=== PATIENT | male | born 1955 | race Caucasian/White ===

== ENCOUNTER 2016-11-28 13:24 | Inpatient (IN) | payer OTHER ==
[~2016-11-28] VITALS: Ht 171.4 cm; Wt 80.3 kg
--- NOTE | ~2016-11-28 | CON ---
PATIENT'S NAME: YOVANA LANDRY [facility] AGE: 61 Y [address] ROOM: [address] [address] [place] [facility] [place] DATE: 11/28/2016 Consultation DISCHARGE DATE: FAMILY PHYSICIAN: Maury Membreno MD ATTENDING PHYSICIAN: JOSE MARTIN FREDERICK REFERRING PHYSICIAN: YANIRA JIM MD REASON FOR CONSULT: Abnormal CAT scan of the abdomen. HISTORY OF PRESENT ILLNESS: This is a very pleasant, 61-year-old male, who presented with abdominal pain, with previous history of kidney stones and was thought to be relating to similar issues, which he has had in the past. However, a CT scan of the abdomen revealed thickening of the cecal wall as well as terminal ilium and question of malignancy and therefore, we were asked to see him in regard to performing colonoscopy. The patient complains of having pain in the right lower quadrant as well as some black stools. He has not had any previous colonoscopic evaluation. His blood work is ordered and is pending. He has had previous history of non-Hodgkin's lymphoma and has undergone treatment twice for this in the form of adjuvant chemoradiation therapy. PAST MEDICAL HISTORY: 1. Non-Hodgkin lymphoma. 2. Kidney stones. PAST SURGICAL HISTORY: 1. Splenectomy. 2. Spinal surgery. 3. Multiple cysto with stent placement. 4. Right inguinal hernia repair. MEDICATIONS ON ADMISSION: None. Presently obtaining pain medication in the form of Tylenol, Dilaudid, and ketorolac p.r.n. ALLERGIES: NONE KNOWN. 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 Denies smoking or alcohol use. FAMILY HISTORY: None for GI cancer. Father had lung cancer. Mother with bladder cancer. PATIENT'S NAME: YOVANA LANDRY [facility] AGE: 61 Y [address] ROOM: [address] [address] [place]: [facility] [place]: 11/28/2016 Consultation DISCHARGE DATE: FAMILY PHYSICIAN: Maury Membreno MD ATTENDING PHYSICIAN: JOSE MARTIN FREDERICK REVIEW OF SYSTEMS: GENERAL: He has been able to work with no recent history of loss of appetite, loss of weight, fever, chills. SKIN: Denies any rashes, discolorations. HEAD, EYES, AND EARS: Denies headaches, dizziness, seizure, or visual changes. RESPIRATORY: Denies cough, shortness of breath, hemoptysis. CARDIOVASCULAR: Denies chest pain, orthopnea, dyspnea on exertion. GASTROINTESTINAL: As noted with recent findings of abnormal CAT scan and question of malignancy. GENITOURINARY: He has had problem with kidney stones and has undergone multiple cystos. ENDOCRINE: Negative for diabetes. Denies polyuria or polydipsia. MUSCULOSKELETAL: Denies joint pain, swelling, or arthritis. SKIN/LYMPHATICS: Denies lymph nodes or bruising. NEUROLOGIC: Denies weakness, seizure, memory changes, or depression. PHYSICAL EXAMINATION: GENERAL: Well-developed, well-nourished man in mild distress in view of right- sided abdominal pains, which are intermittent in nature. He is otherwise awake, alert, and appropriate. VITAL SIGNS: As noted in the nursing sheet are stable. HEENT: Atraumatic and normocephalic. Pupils are round and reactive. Nonicteric sclerae. NECK: Supple. No JVD. No palpable nodes or thyromegaly. CHEST: Clear to auscultation. HEART: S1, S2 normal. ABDOMEN: Soft and mildly distended with moderate right lower quadrant tenderness, no guarding. RECTAL: Not done. EXTREMITIES: No joint swelling. Normal range of motion. No edema. NEUROLOGIC: Awake, alert, and appropriate without any focal deficits. LABORATORY DATA: Reviewed revealing white cell count of 14,000, hemoglobin 12.3, hematocrit 37.1. Chemistry panel is normal except for serum albumin of 3.1. PT/INR 1.1. CT scan of the abdomen revealing circumferential wall thickening involving the cecum and terminal ilium suggestive of malignancy. There is evidence of mildly prominent regional lymph nodes, tiny nonobstructive right intrarenal stone is noted. There is no evidence of metastatic liver disease and there is evidence of splenectomy. ASSESSMENT AND PLAN: This is a 61-year-old male with history of kidney stones presenting with similar problem and underwent CT scan of the abdomen with surprise findings of PATIENT'S NAME: YOVANA LANDRY [facility] AGE: 61 Y [address] ROOM: [place] [address] [place]: [facility] [place] DATE: 11/28/2016 Consultation DISCHARGE DATE: FAMILY PHYSICIAN: Maury Membreno MD ATTENDING PHYSICIAN: JOSE MARTIN FREDERICK suspicious for malignancy. The patient also has had history of gastrointestinal bleed with no previous colonoscopy. His hematocrit is well preserved. He does have some abdominal discomfort and bloating possibly secondary to this lesion. The patient needs colonoscopy for further diagnostic purposes and will be scheduled in an urgent fashion. I have explained to him the procedure of colonoscopy, including the possible risks, complications thereof and he wishes to proceed. Further recommendations post this evaluation. Thank you for this consult. MAXIMINOM MD MIRTHA JIM/rosalia /[id number] d: 11/29/16 0852 t: 11/30/16 0730, CONSULTATION REPORT
--- NOTE | ~2016-11-28 | CON ---
PATIENT'S NAME: STEVEN LANDRY [facility] AGE: 61 Y [address] ROOM: [address] [place] [id number] [place] [facility] [place] DATE: 11/28/2016 Consultation DISCHARGE DATE: FAMILY PHYSICIAN: Maury Membreno MD ATTENDING PHYSICIAN: JOSE MARTIN FREDERICK DATE OF CONSULTATION: 11/30/2016 REFERRING PHYSICIAN: YANIRA JIM MD REASON FOR CONSULTATION: The patient is a 61-year-old male who was admitted with severe right lower quadrant pain. He said that he has had some change in his stools recently, and he has some abdominal bloating. He did have a CT scan performed of his abdomen and pelvis when he was in the emergency room on 11/28 which showed circumferential wall thickening of the cecum and the distal terminal ilium with surrounding mesenteric stranding. There was some mild prominence in the regional lymph nodes. He also had one punctate intrarenal stone on the right kidney in the lower pole. Because of the patient's CT scan, he had a colonoscopy prep and a colonoscopy yesterday. Apparently, the report showed some thickening in the cecum, and multiple biopsies were taken. Since he has had his colonoscopy prep, his abdominal pain is significantly better. He has really not had anything for pain since he has been here. PAST MEDICAL HISTORY: He was diagnosed with Hodgkin disease, stage IVB, in 1983. He had a splenectomy at that time. He underwent chemotherapy. He did have a relapse in 1985 of Hodgkin disease. At that time, he underwent chemotherapy and had radiation therapy to his chest. 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 He underwent chemotherapy x4 cycles and had radiation therapy to that area. SOCIAL HISTORY: He is a nonsmoker and a nondrinker. He has 3 adopted children aged 20 to 24. FAMILY HISTORY: Paternal grandmother of colon cancer when she was very young, likely in her 30s. Father of lung cancer at age 78, but he smoked significantly. Maternal grandfather had colon cancer and at age 93. Mother had bladder cancer when she was really young, when Steven was approximately 10 years old, and she is living currently. A maternal uncle had bladder cancer, he was a heavy smoker and has had several different bladder resections. REVIEW OF SYSTEMS: PATIENT'S NAME: LANDRY, STEVEN M [facility] AGE: 61 Y [address] ROOM: [address] [address] [place] [facility] [place] DATE: 11/28/2016 Consultation DISCHARGE DATE: FAMILY PHYSICIAN: Maury Membreno MD ATTENDING PHYSICIAN: JOSE MARTIN FREDERICK Besides his GI complaints of abdominal bloating and change in the color of his stools, he has otherwise been doing well. PHYSICAL EXAMINATION: VITAL SIGNS: Temperature is 97.3, pulse 77, respirations 16, blood pressure is 123/68, and saturation is 93% on room air. GENERAL: The patient is a very pleasant, alert, and oriented male who is in no distress. HEENT: No scleral icterus present. Extraocular muscles intact. Mouth is clear of lesions. NECK: Supple without adenopathy or thyromegaly. Trachea is in the midline. There are no masses or nodules present. HEART: Regular. LUNGS: Clear to auscultation anteriorly. ABDOMEN: Bowel sounds are present. He is fairly tender in his right lower quadrant on mild palpation. There are no obvious masses that are palpable. EXTREMITIES: He has no peripheral edema. SKIN: There is no skin rash, petechia, or ecchymosis that are noted. IMPRESSION: 1. Cecal mass, pathology pending. 2. Remote history of Hodgkin disease, likely cured. 3. Follicular non-Hodgkin lymphoma. Apparently, stage I, status post chemo and radiation. RECOMMENDATIONS: 1. We will have Dr. Correa follow up with the biopsy report. If this is adenocarcinoma, then he likely would need resection, but consider a PET scan prior to resection to look at the stage of his disease. 2. If this is a lymphoma, there is no role for Surgery, and we will have him get set up for followup to consider treatment options as an outpatient. 3. I think it would be reasonable to send the patient home, maybe have some hydrocodone on hand in case if he needs it, and I can follow up outpatient as necessary. HEIDI BEDOYA MD CML/modl /[id number] PATIENT'S NAME: STEVEN LANDRY [facility] AGE: 61 Y [address] ROOM: [address] [address] [place] [facility] [place] DATE: 11/28/2016 Consultation DISCHARGE DATE: FAMILY PHYSICIAN: aMury Membreno MD ATTENDING PHYSICIAN: JOSE MARTIN FREDERICK CC: Maury Membreno MD d: 11/30/16 1457 t: 12/09/16 1451, CONSULTATION REPORT
--- NOTE | ~2016-11-28 | HP ---
PATIENT'S NAME: YOVANA LANDRY [facility] AGE: 61 Y [address] ROOM: [place] [id number] [place]: [facility] [place] DATE: 11/28/2016 History & Physical DISCHARGE DATE: FAMILY PHYSICIAN: Maury Membreno MD ATTENDING PHYSICIAN: JOSE MARTIN FREDERICK DATE OF SERVICE: CHIEF COMPLAINT: Abdominal pain, cecum mass. HISTORY OF PRESENT ILLNESS: This is a 61-year-old male with a history of lymphoma twice in the and last time in 2010, in remission since, presents here for evaluation of left lower quadrant abdominal pain, and a CT scan of the abdomen showing a possible mass surrounding the cecum and terminal ilium. The patient reports the abdominal pain is localized to the left lower quadrant, described as achy and started yesterday evening and has been progressively getting worse since. The pain is nonradiating, dull in nature. The pain is exacerbated by movement and relieved with rest. The patient denies any nausea or vomiting, did have a bowel movement yesterday. The patient never had a colonoscopy done before. PAST MEDICAL HISTORY: Follicular lymphoma and Hodgkin lymphoma. SOCIAL HISTORY: No history of smoking, alcohol use, or drug use. FAMILY HISTORY: The patient notes a history of multiple cancers including colon cancer in his first-degree relatives. REVIEW OF SYSTEMS: All systems have been reviewed and were negative except as described in the HPI. PHYSICAL EXAMINATION: VITAL SIGNS: Blood pressure 145/70, pulse 70, respiratory rate 12, and temperature 97.8. GENERAL: The patient is awake, alert, and oriented x3, in mild distress. HEENT: Moist mucous membranes. No scleral icterus or conjunctival pallor noted. SKIN: Without rash or lesions. CHEST: Clear to auscultation bilaterally. HEART: S1, S2. Regular rate and rhythm. PATIENT'S NAME: YOVANA LANDRY [facility] AGE: 61 Y [address] ROOM: [address] [address] [place]: [facility] [place] DATE: 11/28/2016 History & Physical DISCHARGE DATE: FAMILY PHYSICIAN: Maury Membreno MD ATTENDING PHYSICIAN: JOSE MARTIN FREDERICK ABDOMEN: Mildly distended and severely tender at the right lower quadrant. Positive bowel sounds. NEURO: Grossly nonfocal. MUSCULOSKELETAL: No joint effusion, swelling, redness, or muscular pain noted. ASSESSMENT AND PLAN: 1. Cecal mass, concerning for malignancy. The patient does have an extensive history of malignancy including lymphoma 3 times as well as has a strong family history of colon cancer as well. The patient has never had a colonoscopy before. I am involving General surgery and GI and I have spoken to them and the plan is to go along with a colonoscopy first, then evaluate to see resection of an area needed after that. 2. Abdominal pain. This is related to the cecal mass. We will continue supportive care and pain management. The patient does not exhibit signs and symptoms of a bowel obstruction at this point. 3. History of recurrent lymphoma. 4. Deep venous thrombosis prophylaxis. We will use heparin 5000 units t.i.d. MD AFUA IZAGUIRRE/rosalia /[id number] D: 230 T: 521 HISTORY & PHYSICAL
--- NOTE | ~2016-11-28 | CON ---
PATIENT'S NAME: STEVEN LANDRY [facility] AGE: 61 Y [address] ROOM: [place] [address] [place]ATION: [facility] [place]MIT DATE: 11/28/2016 Consultation DISCHARGE DATE: FAMILY PHYSICIAN: Maury Membreno MD ATTENDING PHYSICIAN: JOSE MARTIN FREDERICK REFERRING PHYSICIAN: YANIRA JMI MD CHIEF COMPLAINT: Abdominal pain. HISTORY OF PRESENT ILLNESS: The patient is a 61-year-old male, who said he developed onset of abdominal pain today in the right lower quadrant. Denies having pain prior to this. Said his bowels have been working well, though had noticed today they got much lidia. He has a history of lymphoma, had been treated for Hodgkin as well as I believe B-cell. His last treatment was in 2011. He had his first episode in the . At that time, he said he had his spleen removed, also underwent treatment for this. He has a history of kidney stones. He was seen and evaluated today because of his right lower quadrant pain. He was sent to Urology. Urology ordered a CT scan. CT ended up revealing a cecal and terminal ileum thickening, likely representing mass. He has been having regular bowel movements. His appetite has been decreased, although he denies losing weight. He said yesterday he did look up on the internet signs and symptoms of colon cancer, although denies having symptoms prior to today, something prompted him to do this. He does have intermittent episodes of hot and cold intolerances, but says this has been that way ever since having chemotherapy. CURRENT MEDICATIONS: None. ALLERGIES: NONE. PREVIOUS SURGERIES: Splenectomy, port placement, right inguinal hernia repair. CURRENT ILLNESSES: 1. History of lymphoma x3. 2. History of meningitis. REVIEW OF SYSTEMS: He denies headache or vision changes. He does have hot and cold intolerances. He denies chest pain or shortness of breath. He has had melenic stools. No hematuria or dysuria. No diabetes. No hyper or hypothyroidism. Further review of systems is negative. PATIENT'S NAME: STEVEN LANDRY [facility] AGE: 61 Y [address] ROOM: [place] [address] LOCATION: [facility] [place] ADMIT DATE: 11/28/2016 Consultation DISCHARGE DATE: FAMILY PHYSICIAN: Maury Membreno MD ATTENDING PHYSICIAN: JOSE MARTIN FREDERICK PHYSICAL EXAMINATION: GENERAL: A pleasant, cooperative 61-year-old male, in no acute distress. HEENT: Head is normocephalic, atraumatic. Eyes are anicteric. NECK: Without lymphadenopathy. HEART: Regular rate and rhythm. LUNGS: Clear to auscultation bilaterally. ABDOMEN: Reveals mild distention. Bowel sounds are present. Point tenderness in the right lower quadrant is moderate to severe. The rest of the abdomen is benign. EXTREMITIES: Warm. No edema. NEUROLOGIC: Gross motor is intact. ASSESSMENT: Cecal and terminal ileal mass. PLAN: I discussed the findings with Steven. We need to get further workup. I would recommend a colonoscopy at this time. This does not have the appearance of infection, although lab is still pending. We will check a CEA. It appears though Gastroenterology has been consulted, who likely will perform a colonoscopy. If his pain is under control with oral pain medications, and it does not worsen and no other signs of infection, likely he could be discharged with further outpatient workup. His CT was noncontrasted, and we may need better visualization whether this be with PET. I discussed with him the possibility of a lymphoma as well as infection. Because of this, we just need further information. MD AGUSTO ROWEO/melbal /[id number] d: 11/28/16 2338 t: 12/11/16 1122, CONSULTATION REPORT
--- NOTE | ~2016-11-28 | DS ---
PATIENT'S NAME: YOVANA LANDRY [facility] AGE: 61 Y [address] ROOM: [address] [place] [id number] [place] [facility] [place]: 11/28/2016 Discharge Summary DISCHARGE DATE: 11/30/2016 FAMILY PHYSICIAN: Maury Membreno MD ATTENDING PHYSICIAN: Jad Fuller FINAL DIAGNOSES: 1. Cecal mass, likely lymphoma, awaiting biopsy results. 2. History of lymphoma x2 in the past. 3. Leukocytosis, resolved. 4. Right nephrolithiasis. CONSULTATIONS: 1. Surgery, Dr. Correa. 2. GI, Dr. Mckeon. 3. Hematology/Oncology, Dr. King. PROCEDURES: Colonoscopy with biopsy of cecal mass by Dr. Mckeon. REASON FOR ADMISSION: This is a 61-year-old male with a history of lymphoma x2 in the past. The patient presented with abdominal pain. He was evaluated and was found to have a cecal mass. He was then admitted to [facility]. Please see Dr. Fuller's admission H and P for further details. DIAGNOSTIC STUDIES: Serial CBCs were done. White count on admission was 14.1, at the time of discharge was stable at 11.2, hemoglobin, hematocrit, and platelet levels were within normal range. BMP was normal. Liver function tests were normal. PT/INR normal. UA showed no leukocytes and no blood. Procalcitonin level 0.07. CEA pending. The patient had a CT abdomen and pelvis without contrast done on admission that showed circumferential wall thickening involving the cecum and also the terminal ileum, likely malignancy, infection was thought to be less likely, mildly prominent regional lymph nodes also suspicious were noted. A colonoscopy was then recommended to further evaluate a tiny nonobstructing right intrarenal stone was noted as well. Chest x-ray was done for sepsis evaluation and elevated white count and showed no focal infiltrate, pleural effusion, or pneumothorax. Right-sided Port-A- Cath device was stable. Blood cultures were negative. HOSPITAL COURSE: This is a 61-year-old male with a history of lymphoma, status post XRT in the past. The patient has had lymphoma twice in the past. He presented with abdominal pain and was evaluated with an abdominal CT. The patient was found to have cecal wall thickening likely malignancy. Surgery Dr. Correa was consulted. Dr. Correa recommended a colonoscopy with biopsy. GI was consulted. The patient underwent a colonoscopy with biopsy with . PATIENT'S NAME: YOVANA LANDRY [facility] AGE: 61 Y [address] ROOM: [address] [address] [place] [facility] [place]: 11/28/2016 Discharge Summary DISCHARGE DATE: 11/30/2016 FAMILY PHYSICIAN: Maury Membreno MD ATTENDING PHYSICIAN: Jad Fuller. Biopsy result is pending at this point of time. The patient likely has lymphoma and was found to have a cecal mass on colonoscopy. The patient also had leukocytosis on admission. He reported a history of fever with chills at home for a few days prior. A sepsis evaluation was done. White count was normal. The patient did not have any fever. He was not placed on any antibiotics. Blood cultures were negative. The patient was also noted to have incidental right nephrolithiasis. He does not report any pain and his symptoms are likely not secondary to nephrolithiasis. The patient was placed on p.o. pain pills at the time of discharge. Hematology/Oncology, Dr. King was consulted for his cecal mass. The patient will follow up with surgery and also Hematology/Oncology outpatient. It was determined that the patient was stable to be discharged home and follow up outpatient with his oncologist, surgery, and primary care physician. The patient continued to do well. He was tolerating p.o. His pain was very well-controlled. He was ambulating in the hallway without any problems. He was then discharged with appropriate followup. DISCHARGE INSTRUCTIONS: The patient discharged on regular diet. Activities as tolerated. Follow up with Dr. Correa in [address] Correa to follow up with the biopsy results. Follow up with Dr. Membreno, his primary care physician, in 3-4 days' time. PCP to check a CBC and a BMP. PCP also to follow up with biopsy results. Follow up with Hematology/Oncology, Dr. King, once biopsy results are back in 1 to 2 weeks' time. DISCHARGE MEDICATIONS: 1. Multivitamin 1 tab p.o. daily. 2. Stovall 5/325 mg 1 tab p.o. q.4-6 h. p.r.n. pain. This patient was managed by Hospitalist, Surgery, GI, and Hematology/Oncology teams during this admission. OMID RUFFIN MD MT/rosalia /[id number] PATIENT'S NAME: YOVANA LANDRY [facility] AGE: 61 Y [address] ROOM: [place] [address] [place] [facility] [place]: 11/28/2016 Discharge Summary DISCHARGE DATE: 11/30/2016 FAMILY PHYSICIAN: Maury Membreno MD ATTENDING PHYSICIAN: Jad Fuller CC: MD Holley Camagro MD Robert C Messbarger, MD d: 12/01/16 0146 t: 12/15/16 2124, DISCHARGE SUMMARY
[2016-11-28] MEDS ORDERED: THERAGRAN-M1 TAB PO (14:38)
[2016-11-28] MEDS ORDERED: ADVIL200 MG PO (14:38)
[2016-11-28 22:08] LABS: BASOPHIL # 0.1 K/uL (0.0-0.2); BASOPHIL % 0.4 %; EOSINOPHIL % 0.3 %; HEMATOCRIT 37.1 % (37.0-53.0); HEMOGLOBIN 12.3 g/dL (11.0-16.0); IMMATURE GRANULOCYTE % 0.3 %; LYMPHOCYTE # 2.8 K/uL (0.8-4.0); LYMPHOCYTE % 20.1 %; MCH 30.8 pg (27.0-34.0); MCHC 33.2 gm/dL (32.0-36.5); MONOCYTE # 1.2 K/uL (0.0-1.0); MONOCYTE % 8.2 %; MPV 9.4 fl (9.4-12.4); NEUTROPHIL % 70.7 %; NRBC % 0 /100WBC (0-0.00); PLATELET COUNT 316 K/uL (150-450); RBC 3.99 M/uL (3.50-5.50); RDW-CV 13.1 % (11.9-14.6); WBC 14.1 K/uL (4.0-11.0)
[2016-11-28 22:16] LABS: INR - (THERAPEUTIC) 1.01 (0.92-1.07); PROTIME 10.6 SECONDS (9.8-11.4)
[2016-11-28 22:21] LABS: ALBUMIN 3.1 gm/dL (3.5-5.0); ANION GAP 11.5 (10.0-19.0); BLOOD UREA NITROGEN 14 mg/dL (6-24); CALCIUM 8.1 mg/dL (8.5-10.5); CHLORIDE 107 mMol/L (96-110); CO2 26 mMol/L (22-32); ESTIMATED GFR (MDRD EQUATION) > 60; MAGNESIUM 2.6 mg/dL (1.8-2.6); PHOSPHORUS 2.6 mg/dL (2.5-4.9); POTASSIUM 3.5 mMol/L (3.7-5.1); SODIUM 141 mMol/L (135-145)
[2016-11-29 17:40] LABS: ALK PHOS 76 IU/L (33-138); ALT 20 IU/L (12-78); ANION GAP 11.6 (10.0-19.0); AST 15 IU/L (10-40); BLOOD UREA NITROGEN 17 mg/dL (6-24); CALCIUM 7.8 mg/dL (8.5-10.5); CHLORIDE 106 mMol/L (96-110); CO2 29 mMol/L (22-32); CREATININE 0.9 mg/dL (0.6-1.3); ESTIMATED GFR (MDRD EQUATION) > 60; POTASSIUM 3.6 mMol/L (3.7-5.1); SODIUM 143 mMol/L (135-145); TOTAL BILIRUBIN 0.7 mg/dL (0.0-1.5); TOTAL PROTEIN 6.3 g/dL (6.0-8.4)
[2016-11-29 17:44] LABS: BASOPHIL # 0.1 K/uL (0.0-0.2); BASOPHIL % 0.5 %; EOSINOPHIL # 0.1 K/uL (0.0-0.5); EOSINOPHIL % 0.8 %; HEMATOCRIT 35.3 % (37.0-53.0); HEMOGLOBIN 11.7 g/dL (11.0-16.0); IMMATURE GRANULOCYTE # 0.1 K/uL (0.0-0.3); IMMATURE GRANULOCYTE % 0.4 %; LYMPHOCYTE # 2.3 K/uL (0.8-4.0); LYMPHOCYTE % 20.7 %; MCH 30.6 pg (27.0-34.0); MCHC 33.1 gm/dL (32.0-36.5); MCV 92.4 fl (83.0-98.0); MONOCYTE # 1.1 K/uL (0.0-1.0); MONOCYTE % 9.4 %; MPV 10.4 fl (9.4-12.4); NEUTROPHIL # (ANC) 7.7 K/uL (1.4-9.0); NEUTROPHIL % 68.2 %; NRBC % 0 /100WBC (0-0.00); RBC 3.82 M/uL (3.50-5.50); RDW-CV 13.1 % (11.9-14.6); WBC 11.2 K/uL (4.0-11.0)
[2016-11-29 18:10] LABS: PLATELET COUNT 248 K/uL (150-450)
[2016-11-29 20:41] LABS: BILIRUBIN URINE NEGATIVE (NEGATIVE); BLOOD URINE NEGATIVE /UL (NEGATIVE); COLOR URINE YELLOW (YELLOW); GLUCOSE URINE NEGATIVE (NEGATIVE); KETONE URINE 50 mg/dL (NEGATIVE); LEUKOCYTES URINE NEGATIVE /UL (NEGATIVE); NITRITE URINE NEGATIVE (NEGATIVE); PROTEIN URINE NEGATIVE (NEGATIVE); TURBIDITY URINE CLEAR (CLEAR); UROBILINOGEN URINE NORMAL (NORMAL)
[2016-11-30] MEDS ORDERED: NORCO 5-325 TA1 EACH PO (12:33)
== END 2016-11-30 16:09 | disposition disaster alternative care site (69) | DRG 842 ==
LOC: GMSU 13:24
PROVIDERS: Family Medicine; Internal Medicine; ADMIT Family Medicine
PROC: 0DBH8ZX Excision of Cecum, Via Natural or Artificial Opening Endoscopic, Diagnostic (ICD-10-PCS; principal; 2016-11-29)
PROC: 0DBC8ZX Excision of Ileocecal Valve, Via Natural or Artificial Opening Endoscopic, Diagnostic (ICD-10-PCS; 2016-11-29)
DX: C83.33 Diffuse large B-cell lymphoma, intra-abdominal lymph nodes (principal); N20.0 Calculus of kidney; Z85.71 Personal history of Hodgkin lymphoma; Z80.0 Family history of malignant neoplasm of digestive organs; D72.829 Elevated white blood cell count, unspecified; Z92.21 Personal history of antineoplastic chemotherapy; Z92.3 Personal history of irradiation
CPT/HCPCS: J1642; J1644; J1885; J2405; J2765; J7120

== ENCOUNTER → 2016-11-28 | Outpatient (CLI) | payer OTHER ==
[~2016-11-28] MED LIST: ADVIL200 MG PO; AMBIEN10 MG PO; BACTRIM DS1 TAB PO; FLOMAX0.4 MG PO; LIDOCAINE-PRILO30 GM TOP; MILK OF MA400 MG/5 M PO; MIRALAX17 GM PO; MYLANTA (MAG-AL30 ML PO; NORCO 5-325 TA1 EACH PO; PEPCID AC10 MG PO; PRILOSEC20 MG PO; SENOKOT8.6 MG PO; THERAGRAN-M1 TAB PO; XARELTO20 MG PO; ZOFRAN ODT8 MG PO; ZOVIRAX400 MG PO; ZYLOPRIM300 MG PO
== END | disposition disaster alternative care site (69) ==
LOC: GRAD 10:00
DX: N20.0 Calculus of kidney (principal); R10.9 Unspecified abdominal pain; K63.89 Other specified diseases of intestine

== ENCOUNTER → 2016-12-09 | Outpatient (CLI) | payer OTHER | END | disposition disaster alternative care site (69) | LOC: GKIC 11:19 | DX: C18.9 Malignant neoplasm of colon, unspecified (principal); K63.89 Other specified diseases of intestine | CPT/HCPCS: A9552 ==

== ENCOUNTER → 2016-12-25 | Outpatient (CLI) | payer OTHER ==
--- NOTE | ~2016-12-25 | ECHO ---
Transthoracic Echocardiography Report (TTE) Demographics Patient Name YOVANA LANDRY Date of Study 12/25/2016 Patient Number [id number] Visit Number [id number] Date of 1955 Room Number Gender Male Number Age 61 year(s) Referring [employer] Community Relations Coordinator Rafa Rhodes RVT, Physician RD Physician Interpreting [employer] Support Specialist Physician MD Supervising Ordering Bulmaro Hendricks MD, MD/P Physician Nurse Stress Mental Health Technician Conclusions Contractility Score Summary Normal Left Ventricular contractility was noted. Summary Limited echo for ejection fraction. The estimated left ventricular ejection fraction is 55-60% with mild LVH,normal EF and WM. Small clinically insignificant pericardial effusion. Procedure Type of Study TTE procedure:Echo Limited w/o Contrast. Procedure Date Date: 12/25/2016 Start: 02:53 PM Study Location: Echo Lab Technical Quality: Good visualization Indications:High Risk Medication Use. Appropriate Use Criteria: 8 Patient Status: Routine Rhythm: NSR HR: 89 bpm BP: 136/70 mmHg M-Mode/2D Measurements LV Diastolic Dimension: 4.84 cm LV Systolic Dimension: 2.95 cm LV Septum Diastolic: 1.19 cm LV PW Diastolic: 1.1 cm AO Root Dimension: 2.3 cm LA Dimension: 3.3 cm RV Diastolic Dimension: 2.93 cm EF Estimated: 55 % LVOT: 2.4 cm Findings Left Ventricle Mild LVH with normal internal dimension,EF and WM. Right Ventricle Normal right ventricle structure and function. Left Atrium Normal left atrial size. Right Atrium Normal right atrial size. Mitral Valve Normal mitral valve structure and function. Aortic Valve Not well seen. Tricuspid Valve Not well seen. Pulmonic Valve Not well seen. Pericardial Effusion Small clinically insignificant pericardial effusion. Miscellaneous Visualized portions of the aortic root and ascending aorta appear normal in size. Pleural Effusion No evidence of pleural effusion. Contractility Score LV regional wall motion:(0-Non visualized 1-Normal 2-Hypokinesis 3-Akinesis 4-Dyskinesis 5-Aneurysm) Signature dtt: Muna Ayoub dtd: 12/25/16 1453 Physician Self Edit
== END | disposition disaster alternative care site (69) ==
LOC: GCAR 14:00
DX: Z51.81 Encounter for therapeutic drug level monitoring (principal); C85.11 Unspecified B-cell lymphoma, lymph nodes of head, face, and neck; C82.01 Follicular lymphoma grade I, lymph nodes of head, face, and neck; C82.61 Cutaneous follicle center lymphoma, lymph nodes of head, face, and neck; I31.3 Pericardial effusion (noninflammatory)

== ENCOUNTER 2016-12-30 09:00 | Inpatient (IN) | payer OTHER ==
[~2016-12-30] VITALS: Ht 172.7 cm; Wt 80.9 kg
--- NOTE | ~2016-12-30 | DS ---
PATIENT'S NAME: STEVEN LANDRY [facility] AGE: 61 Y [address] 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 HISTORY OF PRESENT ILLNESS AND PAST MEDICAL HISTORY: Well summarized in Dr. Chamberlain's admission history and physical and will not be repeated here. LABORATORY AND X-RAY: None obtained while the patient was in the hospital. HOSPITAL COURSE: Mr. Landry was admitted, no laboratory or x-rays were obtained. The patient's hospitalization was uneventful. He experienced some relief of his gastrointestinal symptoms provoked by the lymphoma, presumably due to response. He complained of insomnia. 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 We visited with him about his choices at the end of his stay. We asked if he wondered if he should rule out the possibility of intubation under any circumstances. We provided him a Living Will, but cautioned him against automatically ruling out intubation in his situation. He is a healthy 61-year-old man with a potentially curable disease and conceivably might have to weigh the pros and cons of intubation for an infectious pulmonary complication in his situation. Fortunately, this is unlikely, but it could happen. When the patient's infusion, then intravenous bolus cyclophosphamide had been administered, Mr. Landry was discharged. DISCHARGE DIAGNOSIS: Stage IIE diffuse large B-cell lymphoma (germinal center type) of the cecal portion of the colon. DISCHARGE MEDICATIONS: 1. Acyclovir 400 mg p.o. daily. 2. Allopurinol 300 mg p.o. daily. 3. Multivitamins daily. 4. Trimethoprim sulfamethoxazole 800/160 one p.o. on Tuesdays and Fridays. 5. Ondansetron 8 mg p.o. every 8 hours p.r.n. nausea or vomiting. DISCHARGE DISPOSITION: 1. The patient will return to [facility] on 01/05/2017, to receive 6 mg subcutaneous pegfilgrastim. PATIENT'S NAME: STEVEN LANDRY [facility] AGE: 61 Y [address] ROOM: [address] [place] [id number] LOCATION: [facility] [place] DATE: 12/30/2016 Discharge Summary DISCHARGE DATE: 01/03/2017 FAMILY PHYSICIAN: Maury Membreno MD ATTENDING PHYSICIAN: Cody Chamberlain 2. The patient will see Dr. Holley King on 01/19/2017, for evaluation prior to hospitalization for 2nd planned cycle of R-EPOCH. CHRISTIN CALDERA MD GKB/modl /[id number] CC: MD Maury Edmond MD d: 01/04/17 0247 t: 01/04/17 1326, DISCHARGE SUMMARY
[~2016-12-30 09:00] MED LIST changes: -AMBIEN10 MG PO; -BACTRIM DS1 TAB PO; -FLOMAX0.4 MG PO; -LIDOCAINE-PRILO30 GM TOP; -MILK OF MA400 MG/5 M PO; -MIRALAX17 GM PO; -MYLANTA (MAG-AL30 ML PO; -PEPCID AC10 MG PO; -PRILOSEC20 MG PO; -SENOKOT8.6 MG PO; -XARELTO20 MG PO; -ZOFRAN ODT8 MG PO; -ZOVIRAX400 MG PO; -ZYLOPRIM300 MG PO
[2017-01-03] MEDS ORDERED: BACTRIM DS1 TAB PO (18:57)
[2017-01-03] MEDS ORDERED: ZOVIRAX400 MG PO (18:59)
[2017-01-03] MEDS ORDERED: ZYLOPRIM300 MG PO (18:59)
== END 2017-01-03 22:50 | disposition disaster alternative care site (69) | DRG 847 ==
LOC: GMSU 09:00
PROVIDERS: ADMIT Internal Medicine Hematology & Oncology
PROC: 3E0430M Introduction of Antineoplastic, Monoclonal Antibody, into Central Vein, Percutaneous Approach (ICD-10-PCS; principal; 2016-12-30)
DX: Z51.11 Encounter for antineoplastic chemotherapy (principal); C83.39 Diffuse large B-cell lymphoma, extranodal and solid organ sites
CPT/HCPCS: J0171; J1100; J1200; J1642; J1720; J2175; J2405; J2469; J7030; J7040; J7050; J7512; J9000; J9070; J9181; J9310; J9370

== ENCOUNTER 2017-01-19 09:00 | Inpatient (IN) | payer OTHER ==
[~2017-01-19] VITALS: Ht 172.7 cm; Wt 75.9 kg
--- NOTE | ~2017-01-19 | DS ---
PATIENT'S NAME: STEVEN LANDRY [facility] AGE: 61 Y [address] ROOM: [address] [address] [place] [facility] [place]: 01/19/2017 Discharge Summary DISCHARGE DATE: 01/23/2017 FAMILY PHYSICIAN: Maury Membreno MD ATTENDING PHYSICIAN: Cody Chamberlain INDICATION: Steven Lanrdy is a 61-year-old man who was admitted to the hospital for his 2nd cycle of R-EPOCH. The history of the present illness and past medical history is well reviewed in the admission note attached to the chart and will not be repeated here. LABORATORY AND X-RAY: Urinalysis unremarkable. Uric acid was 4.1 mg/dL on 01/22/2017. ProBNP was 222 pg/mL on 01/22/2017 with the upper limits of normal being 124 pg/mL. A CT scan of the abdomen and pelvis revealed moderate prostatomegaly. The thickening in the cecum from the patient's primary tumor had improved. 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 HOSPITAL COURSE: Mr. Landry was admitted. The aforementioned laboratory and x-rays were obtained. A bladder scan performed upon his admission revealed 180 mL of urine in the bladder and a postvoid residual revealed 30 mL. The patient's terribly annoying urinary hesitancy, urgency, and incomplete voiding completely resolved. This episode is a mystery. The patient credited the physical examination of the prostate with this benign outcome. Since the patient did have tiny kidney stones, this theory is not completely off the wall, but his improvement is a mystery. We will not change our management. The patient tolerated his chemotherapy infusion well. We will look into the potential for administering chemotherapy infusions over 24 hours for 4 days in a row as an outpatient. The patient's vincristine paresthesias did not increase while he was in the hospital. When the infusion was complete and the bolus of parenteral cyclophosphamide was administered, the patient was discharged. DISCHARGE DIAGNOSES: 1. Stage IIE, diffuse large B-cell lymphoma of the cecum, responding to therapy with R-EPOCH. 2. Benign prostatic hypertrophy. 3. Anxiety. 4. Grade 2 vincristine paresthesias. 5. Grade 2 constipation from vincristine. DISCHARGE MEDICINES: 1. Acyclovir 400 mg p.o. daily. 2. Famotidine 20 mg p.o. daily. 3. Multivitamins 1 p.o. q.24 hours. 4. Polyethylene glycol 17 g p.o. daily. PATIENT'S NAME: STEVEN LANDRY [facility] AGE: 61 Y [address] ROOM: [address] [address] [place]: [facility] [place] DATE: 01/19/2017 Discharge Summary DISCHARGE DATE: 01/23/2017 FAMILY PHYSICIAN: Maury Membreno MD ATTENDING PHYSICIAN: oCdy Chamberlain 5. Trimethoprim-sulfamethoxazole 1 p.o. b.i.d. on Thursday and Thursday. 6. Mylanta 30 mL p.o. every 4 hours p.r.n. 7. Milk of magnesia 30 mL p.o. every day p.r.n. 8. Zolpidem tartrate 5 mg p.o. q.h.s. 9. Ondansetron 8 mg p.o. every 12 hours p.r.n. nausea and vomiting. 10. EMLA cream, apply to the port as needed. The patient's allopurinol and tamsulosin were discontinued. DISCHARGE DISPOSITION: 1. The patient will have a surveillance echocardiogram prior to his next dose of infusional doxorubicin 1 week prior to his return into the office. 2. The patient will report to [facility] on 01/26/2017 for pegfilgrastim 6 mg subcutaneous. 3. The patient will see Dr. Chamberlain on 02/10/2017, with a CBC and CMS in anticipation of starting his third and final cycle of R-EPOCH. The patient expressed a preference for receiving his rituximab infusion at the [facility], so this will need to be considered, as well as the potential for administering 24-hour infusions of the doxorubicin, vincristine, and CLINICAL EDUCATION MANAGER-16. MD LUISA MORENOB/modl /[id number] CC: MD Maury Edmond MD d: 01/24/17 0317 t: 01/27/17 0922, DISCHARGE SUMMARY
[~2017-01-19 09:00] MED LIST changes: +BACTRIM DS1 TAB PO; +ZOVIRAX400 MG PO; +ZYLOPRIM300 MG PO
[2017-01-19 12:00] LABS: BILIRUBIN URINE NEGATIVE (NEGATIVE); BLOOD URINE NEGATIVE /UL (NEGATIVE); COLOR URINE YELLOW (YELLOW); GLUCOSE URINE NEGATIVE (NEGATIVE); KETONE URINE NEGATIVE (NEGATIVE); LEUKOCYTES URINE NEGATIVE /UL (NEGATIVE); NITRITE URINE NEGATIVE (NEGATIVE); PROTEIN URINE NEGATIVE (NEGATIVE); TURBIDITY URINE CLEAR (CLEAR); UROBILINOGEN URINE NORMAL (NORMAL)
--- NOTE | 2017-01-19 17:12 | NUR ---
Patient is alert and oriented x3. VSS and on RA. Port to the right chest, SL. Currently down at CT scan of the abdomen and pelvis. Plan is to start chemo when he arrives back on the floor. Denies pain at this time. Holding the allopurinol. Having urgency with urination, aware. Up ad mercy. Regular diet. Hazardous drug precautions. 24 hour continuous infiusion of chemotherapy to begin. Did have the rituxan infusion over at the cancer center before coming over to the [facility]. in the room. Cooperative with cares.
[2017-01-19] MEDS ORDERED: PEPCID AC10 MG PO (18:07)
[2017-01-19] MEDS ORDERED: FLOMAX0.4 MG PO (18:07)
[2017-01-19] MEDS ORDERED: ZOFRAN ODT8 MG PO (18:08)
--- NOTE | 2017-01-20 02:29 | NUR ---
Significant Event: PT AO. VSS ON RA, AFEBRILE. PORT TO R CHEST, GOOD BLOOD RETURN. DAILY WT, STRICT I/O. DECREASED APPETITE, DENIES PAIN AND NAUSEA. CHEMOTHERAPY ( DOXORUBICIN, VINCRISTINE, ETOPOSIDE) CONTINUE TO RUN. BAG WAS HUNG AT 1730. UP AD KEHINDE IN ROOM WITH . Follow up: 24HR BAG CHANGE, CONTINUE TO MONITOR
--- NOTE | 2017-01-20 16:42 | NUR ---
Significant event: Patient is alert and oriented. VSS. on room air. No fever. No complaints of pain or nausea. Decreased appetite. Does drink well. CHemo continues to run. Up ad mercy. Uses urinal at bedside. No BM, did refuse miralax this morning. Has port to right chest. Strict I/O and daily wt. Cooperative with cares.
--- NOTE | 2017-01-21 03:57 | NUR ---
Significant Event: PT AO. VSS ON RA, AFEBRILE. PORT TO R CHEST, CHEMOTHERAPY INFUSION CONTINUES TO RUN. PT DENIES PAIN, DENIES NAUSEA. C/O CONSTIPATION. PRN MILK OF MAG GAVE WITH NO RESULTS YET. AMBULATES IN HALLS AND ROOM INDEPENDENTLY. AT BEDSIDE. TOLERATING REGULAR DIET, DOES C/O DECREASED APPETITE. Follow up: CHEMOTHERAPY BAG CHANGE, CONTINUE TO MONITOR
[2017-01-21] MEDS ORDERED: LIDOCAINE-PRILO30 GM TOP (07:28)
--- NOTE | 2017-01-21 16:45 | NUR ---
Significant event: Patient is alert and oriented x3. VSS. On room air. Port to right chest, with continuous chemo running. Uses urinal at beside, is on strict I&O. Had BM this morning. Dc'd daily weight and vital signs changed to once a shift. ambulates with stand by assist. Cooperative cares.
--- NOTE | 2017-01-22 07:23 | NUR ---
Significant Event: A/O X3 AND COOPERATIVE WITH CARES. DENIES PAIN. VSS AND AFEBRILE. VITALS ONLY ONCE A SHIFT. PORT TO R) CHEST WITH GOOD BLOOD RETURN. REMAINS ON CONTINUOUS CHEMO, NEW BAG HUNG. NO COMPLICATIONS NOTED FROM CHEMO AT THIS TIME. UP AD KEHINDE. AT BEDSIDE. REFUSED LAB DRAW THIS AM. CALLED DR MARIE AND CHANGED TO NURSE DRAW FOR TONIGHT WHEN CHANGING CHEMO BAGS DUE TO PATIENT' SEVERE NEEDLE PHOBIA. DID GET AMBIEN AT HS. SLEPT WELL THROUGH NIGHT. Follow up: CONTINUOUS CHEMO INFUSION. NURSE DRAW TONIGHT WHEN CHANGING CHEMO BAGS.
--- NOTE | 2017-01-22 15:51 | NUR ---
Patient is alert and oriented, VSS, Q shift vital sign and assessment. No daily weights and no blood draws by lab due to needle phobia. Independent in room. Continuous 24 hour chemo, will be changed around 1900. Prior to new bag being hung, labs need to be drawn. Tonight will start day 4 of chemo, will need Cytoxan tomorrow night and probably go home after that infusion.
[2017-01-22 19:00] LABS: HEMATOCRIT 30.9 % (37.0-53.0); HEMOGLOBIN 10.1 g/dL (11.0-16.0); IMMATURE GRANULOCYTE # 0.1 K/uL (0.0-0.3); IMMATURE GRANULOCYTE % 0.8 %; LYMPHOCYTE # 0.6 K/uL (0.8-4.0); LYMPHOCYTE % 5.9 %; MCH 28.1 pg (27.0-34.0); MCHC 32.7 gm/dL (32.0-36.5); MCV 86.1 fl (83.0-98.0); MONOCYTE # 0.4 K/uL (0.0-1.0); MONOCYTE % 4.1 %; MPV 8.9 fl (9.4-12.4); NEUTROPHIL # (ANC) 8.9 K/uL (1.4-9.0); NEUTROPHIL % 89.2 %; NRBC % 0.8 /100WBC (0-0.00); PLATELET COUNT 513 K/uL (150-450); RBC 3.59 M/uL (3.50-5.50); RDW-CV 14.7 % (11.9-14.6); WBC 9.9 K/uL (4.0-11.0)
[2017-01-22 19:20] LABS: ALBUMIN 2.6 gm/dL (3.5-5.0); ALK PHOS 98 IU/L (33-138); ALT 36 IU/L (12-78); ANION GAP 11.5 (10.0-19.0); AST 23 IU/L (10-40); BLOOD UREA NITROGEN 18 mg/dL (6-24); CALCIUM 8.1 mg/dL (8.5-10.5); CHLORIDE 108 mMol/L (96-110); CO2 25 mMol/L (22-32); CREATININE 0.8 mg/dL (0.6-1.3); ESTIMATED GFR (MDRD EQUATION) > 60; POTASSIUM 3.5 mMol/L (3.7-5.1); SODIUM 141 mMol/L (135-145)
[2017-01-22 19:24] LABS: TOTAL BILIRUBIN 0.3 mg/dL (0.0-1.5)
--- NOTE | 2017-01-23 05:00 | NUR ---
Significant Event: STANDBY ASSIST WITH TRANSFERS. CHEMOTHERAPY RUNNING. VITAL SIGNS AND ASSESSMENTS ONCE EVERY SHIFT. FAMILY AT BEDSIDE. VOIDING WITHOUT DIFFICULTY. R) CHEST PORT. NUMBNESS AND TINGLING TO FINGERS. Follow up:
[2017-01-23] MEDS ORDERED: MIRALAX17 GM PO (18:36)
[2017-01-23] MEDS ORDERED: MYLANTA (MAG-AL30 ML PO (18:37)
[2017-01-23] MEDS ORDERED: AMBIEN10 MG PO (18:43)
[2017-01-23] MEDS ORDERED: MILK OF MA400 MG/5 M PO (18:43)
--- NOTE | 2017-01-23 19:28 | NUR ---
AAOx3. Cooperative with cares. Up ad mercy in room. Chemotherapy infusing through Right chest port. Chemo will be completed prior to 1999 and patient d/c'd to home. Deaccess port prior to d/c. VSS, afebrile, on RA. No PRN meds given. Charge nurse to manage chemo. Patient educated on chemo precautions, followup appointments, and new medications. Bottled water and Gatorade in galley for patient. Have d/c papers signed.
--- NOTE | 2017-02-09 11:32 | NUR ---
Post hospitalization follow up call make to patient. Patient reports he is just beginning to feel better, however; will have chemotherapy tomorrow and then feels worse. Misses having Dr. Duran as his assigned oncologist. Reports hospital stay went well. States he wishes nursing staff assignments would be more consistent as he felt he had a different nurse every day.
== END 2017-01-23 20:38 | disposition disaster alternative care site (69) | DRG 848 ==
LOC: GMSU 09:00
PROVIDERS: Internal Medicine Hematology & Oncology; ADMIT Internal Medicine Hematology & Oncology
DX: Z51.11 Encounter for antineoplastic chemotherapy (principal); F41.9 Anxiety disorder, unspecified; R10.13 Epigastric pain; K59.09 Other constipation; R20.8 Other disturbances of skin sensation; N40.1 Benign prostatic hyperplasia with lower urinary tract symptoms; R39.11 Hesitancy of micturition; R39.15 Urgency of urination
CPT/HCPCS: J0171; J1100; J1200; J1720; J2469; J7030; J7040; J7050; J7512; J9000; J9070; J9181; J9310; J9370; Q9967

== ENCOUNTER → 2017-01-30 | Outpatient (CLI) | payer OTHER ==
[~2017-01-30] MED LIST changes: +AMBIEN10 MG PO; +FLOMAX0.4 MG PO; +LIDOCAINE-PRILO30 GM TOP; +MILK OF MA400 MG/5 M PO; +MIRALAX17 GM PO; +MYLANTA (MAG-AL30 ML PO; +PEPCID AC10 MG PO; +PRILOSEC20 MG PO; +SENOKOT8.6 MG PO; +XARELTO20 MG PO; +ZOFRAN ODT8 MG PO
--- NOTE | ~2017-01-30 | ENPV ---
Vascular Lower Extremities DVT Study Procedure Demographics Patient Name YOVANA LANDRY Date of Study 01/30/2017 Patient Number [id number] Gender Male Date of 1955 Age 61 Visit Number [id number] Height Accession Number [id number] Weight Room Number BSA BMI Referring Bulmaro Hendricks MD Interpreting Brandon Cruz MD Physician Temi Nath Physician MD Bulmaro Hendricks Physician Ordering Physician Bulmaro Hendricks Set Making Machine Operator Glass Forming Engineer Perry Worrell RVT Conclusions Summary Evidence of DVT in right posterior tibial and peroneal veins. No evidence of DVT proximal to calf veins. Procedure Type of Study: Veins:Lower Extremities DVT Study, Lower Extremity Left. Additional Indications:calf pain Appropriate Use Criteria:9 Patient Status:Routine. Study Location:Vascular Lab. Technical Quality:Adequate visualization. Velocities are measured in cm/s ; Diameters are measured in cm Right Lower Extremities DVT Study Measurements Right 2D and Doppler Measurements + + + + +------+------+ + !Location !Visualized!Compressibility!Thrombosis!Signal!Reflux!Reflux ! ! ! ! ! ! ! !(sec) ! + + + + +------+------+ + !Common !Yes !Yes !None ! ! ! ! !Femoral ! ! ! ! ! ! ! + + + + +------+------+ + Left Lower Extremities DVT Study Measurements Left 2D and Doppler Measurements + + + + +------+------+ + !Location !Visualized!Compressibility!Thrombosis!Signal!Reflux!Reflux ! ! ! ! ! ! ! !(sec) ! + + + + +------+------+ + !GSV Thigh !Yes !Yes !None ! ! ! ! + + + + +------+------+ + !Common !Yes !Yes !None ! ! ! ! !Femoral ! ! ! ! ! ! ! + + + + +------+------+ + !Prox !Yes !Yes !None ! ! ! ! !Femoral ! ! ! ! ! ! ! + + + + +------+------+ + !Mid Femoral!Yes !Yes !None ! ! ! ! + + + + +------+------+ + !Dist !Yes !Yes !None ! ! ! ! !Femoral ! ! ! ! ! ! ! + + + + +------+------+ + !Popliteal !Yes !Yes !None ! ! ! ! + + + + +------+------+ + !PTV !Yes !Partial !Sub-acute ! ! ! ! + + + + +------+------+ + !Peroneal !Yes !Partial !Sub-acute ! ! ! ! + + + + +------+------+ + Signature dtt: LENO SUÁREZ: 01/30/17 1107 Physician Self Edit
== END | disposition disaster alternative care site (69) ==
LOC: GCAR 10:48
DX: M79.662 Pain in left lower leg (principal); C85.13 Unspecified B-cell lymphoma, intra-abdominal lymph nodes; Z79.899 Other long term (current) drug therapy

== ENCOUNTER → 2017-02-02 | Outpatient (CLI) | payer OTHER ==
--- NOTE | ~2017-02-02 | ECHO ---
Transthoracic Echocardiography Report (TTE) Demographics Patient Name YOVANA LANDRY Date of Study 02/02/2017 Patient Number [id number] Visit Number [id number] Date of 1955 Room Number Gender Male Number Age 61 year(s) Referring Bulmaro Hendricks Government Affairs Director Lovely Morgan RDCS, Physician RVT Physician Interpreting Wei Graham Frame Aligner Physician Verónica VIDAL Supervising Ordering Bulmaro Hendricks MD, MD/MLP Physician Nurse Stress Scooter Mechanic Conclusions Contractility Score Summary Normal Left Ventricular contractility was noted. Summary The estimated left ventricular ejection fraction is 55-60%. The left atrium is mildly dilated by LA volume index measurement. Mild concentric left ventricular hypertrophy. Small posterior pericardial effusion. Procedure Type of Study TTE procedure:Echo Limited w/o Contrast. Procedure Date Date: 02/02/2017 Start: 10:54 AM Study Location: Echo Lab Technical Quality: Adequate visualization Indications:High Risk Medication Use. Appropriate Use Criteria: 9 Patient Status: Routine HR: 90 bpm BP: 122/62 mmHg M-Mode/2D Measurements LV Diastolic Dimension: 4.45 cm LV Systolic Dimension: 2.28 cm LV Septum Diastolic: 1.03 cm LV PW Diastolic: 1.05 cm LA Dimension: 3.4 cm RV Diastolic Dimension: 3.54 cm LA volume: 58 ml Findings Left Ventricle Mild concentric left ventricular hypertrophy. Right Ventricle Normal right ventricle structure and function. Left Atrium The left atrium is mildly dilated by LA volume index measurement. Right Atrium Normal right atrial size. Pericardial Effusion Small posterior pericardial effusion. Pleural Effusion No evidence of pleural effusion. Contractility Score LV regional wall motion:(0-Non visualized 1-Normal 2-Hypokinesis 3-Akinesis 4-Dyskinesis 5-Aneurysm) Signature dtt: Bri Carvajal dtd: 02/02/17 1054 Physician Self Edit
== END | disposition disaster alternative care site (69) ==
LOC: GCAR 10:47
DX: Z51.81 Encounter for therapeutic drug level monitoring (principal); C85.13 Unspecified B-cell lymphoma, intra-abdominal lymph nodes; I51.7 Cardiomegaly; I31.3 Pericardial effusion (noninflammatory); Z79.899 Other long term (current) drug therapy

== ENCOUNTER 2017-02-10 10:00 | Inpatient (IN) | payer OTHER ==
[~2017-02-10] VITALS: Ht 172.7 cm; Wt 72.5 kg
--- NOTE | ~2017-02-10 | DS ---
PATIENT'S NAME: YOVANA LANDRY [facility] AGE: 61 Y [address] ROOM: [address] [place], [place] [address] LOCATION: [facility] [place] ADMIT DATE: 02/10/2017 Discharge Summary DISCHARGE DATE: 02/14/2017 FAMILY PHYSICIAN: Physician, Unknown ATTENDING PHYSICIAN: Chris Duran REASON FOR HOSPITALIZATION: As outlined in the H and P and will be repeated here. HOSPITAL COURSE: The patient was admitted for his third cycle of R-EPOCH chemotherapy to treat his diffuse large cell non-Hodgkin's lymphoma. The first couple days after starting his chemotherapy, he did have some mild nausea and some heartburn; however, the nausea improved with some antiemetics and his Prilosec was changed in the evening and that seemed to control most of his symptoms. Otherwise, his hospital stay was completely uneventful. DISCHARGE MEDICATIONS: He will resume all of his prior home medications which are: 1. Xarelto 15 mg daily. 2. Acyclovir 400 mg b.i.d. 3. Bactrim DS 2 days a week. 4. Flomax. 5. Prilosec daily. 6. Senokot. 7. Zofran p.r.n. 8. MiraLax. The patient will be discharged in good condition. He is scheduled to get Neulasta at [facility] on February 17. He has a followup appointment with Dr. Chamberlain on March 06 and he will schedule an appointment to go to [facility] and to have further evaluation done as well. HEIDI BEDOYA MD CML/modl /[id number] d: 02/14/171833 t: 03/05/171648, DISCHARGE SUMMARY
[~2017-02-10 10:00] MED LIST changes: -PRILOSEC20 MG PO; -SENOKOT8.6 MG PO; -XARELTO20 MG PO
[2017-02-10] MEDS ORDERED: PRILOSEC20 MG PO (16:05)
[2017-02-10] MEDS ORDERED: SENOKOT8.6 MG PO (16:06)
--- NOTE | 2017-02-10 16:06 | NUR ---
Pt is 61 y/o male admit for chemotherapy tx for . Pt alert and oriented x3. Resides at home with his . Pt has had 4 different kinds of cancer since he was 27 y/o. Currently he's being tx'd for diffuse Lg B cell lymphoma. Hx neuropathy fingers,gerd,heartburn,nocturia,kidney stone,skin CA,depression,anxiety,Hodgkins lymphoma,follicular lymphoma,and skin Ca. Allergy to ambien-caused confusion. Red and yellow bracelets on.
[2017-02-10] MEDS ORDERED: XARELTO20 MG PO (16:50)
--- NOTE | 2017-02-10 18:30 | NUR ---
Significant Event: Patient admitted to floor at 1500 for chemotherapy treatments that run through Thursday. Patient will be on chemotherapy precautions throughout his hospital stay. Chemotherapy medication bag hung today at 1621 and should infuse for 24 hours and then a new bag will be hung. Denies pain. Very little appetite but did get patient some pedialyte to try and ordered up 2 bottles of water and 2 gatorade for patient. at bedside and able to help patient as needed. Patient did ambulate in the [place] with his just prior to chemo being started. Implanted port to right chest intact and patent with good blood return and currently has patient's chemo infusing through it. Follow up: Continue to monitor. Encourage oral intake to avoid dehydration.
--- NOTE | 2017-02-11 04:42 | NUR ---
Significant Event: Patient alert and oriented X4. Up ad mercy. at bedside and helps with cares. 24 hours chemo started around 1630 to R) chest port. Vitals stable. Pt refused 2nd set of vitals, 2nd assessment, daily weight and all lab draws. States he does not want to be bothered and just wants to sleep. brought supper for him, had bites. Pedialyte at bedside, and extra bottled water and gatorade in fridge for him. Mylanta given around 0230 for heart burn. History of several cancers. DVT in leg, pt on xarelto. Follow up:
--- NOTE | 2017-02-11 16:03 | NUR ---
Significant Event: Patient alert and oriented. Up to the bathroom with assist from and ambulated in the hallway this afternoon. Patient c/o nausea this morning and received Mylanta 30 ml at 0839 and Zofran ODT 8 mg at 0916 with partial relief. Patient states not having an appetite. Refused breakfast and had bites of lunch. Portacath to his R) upper chest patent with good blood return. Continues with the continuous infusion of chemotherap of Adriamycin/Vincristing/Etoposide. Follow up: Chemotherapy precautions.
--- NOTE | 2017-02-12 02:50 | NUR ---
Significant Event: PT AO. VSS ON RA, AFEBRILE. REFUSED SECOND SET VITALS. UP AD KEHINDE IN ROOM WITH . CHEMOTHERAPY RUNNING TO R CHEST PORT, BAG CHANGED AROUND 1700. TOLERATING SMALL AMOUNTS REGULAR DIET. DENIES PAIN AND NAUSEA. Follow up: CONTINUE TO MONITOR, CHEMO PRE MEDS
--- NOTE | 2017-02-12 18:39 | NUR ---
AAOx3. Cooperative with cares. Up independently in room. Port to R)chest w/GBR and chemotherapy running 96hrs. Bag changed @1630. Voids per urinal. [facility]. Strict I/O.
--- NOTE | 2017-02-13 04:16 | NUR ---
Significant Event: PT AO. VSS ON RA, AFEBRILE. REFUSED SECOND ASSESSMENT, JUST WANTS TO SLEEP. AMBULATED IN VIDAL WITH . UP AD KEHINDE IN ROOM. STRICT I/O. PORT TO R CHEST, CHEMOTHERAPY INFUSING WITH NO COMPLICATIONS. DENIES NAUSEA, DENIES PAIN. NO BM REPORTED THIS SHIFT. Follow up: CONTINUE TO MONITOR, CHEMOTHERAPY BAG CHANGE AROUND 1600
--- NOTE | 2017-02-13 17:03 | NUR ---
AAOx3. Cooperative with cares. Up independently and with family. Vital signs stable, on RA. Chemotherapy infusing in R)chest w/GBR. Voids per urinal. No BM; has PRN meds for this if wanted.
--- NOTE | 2017-02-14 05:36 | NUR ---
Significant Event: A/O X3 AND COOPERATIVE WITH CARES. CONTINUES ON 24HR CHEMO AND TOLERATING WELL. UP INDEPENDENTLY. PORT TO R) CHEST HAS GOOD BLOOD RETURN. VOIDS PER URINAL, STRICT I&O. SLEPT WELL THROUGH NIGHT. AT BEDSIDE. Follow up:
--- NOTE | 2017-02-14 18:03 | NUR ---
PATIENT ALERT AND ORIENTED X3. VSS. UP AD KEHINDE IN ROOM. CONTINUOUS CHEMO INFUSED WELL WITHOUT COMPLICATIONS. PAC TO RIGHT CHEST HAS GOOD BLOOD RETURN, WILL RECIEVE CYTOXAN THEN DC HOME TONIGHT. NO NEEDS NOTED. PATIENT PLEASANT AND COOPERATIVE WITH CARES.
--- NOTE | 2017-02-14 20:18 | NUR ---
PT VSS UPON DISCHARGE. PORT DE-ACCESSED BY BEAUTY CULTURE TEACHER. PT SHOWERED JUST PRIOR TO DEPARTURE. AMBULATED OFF UNIT AT 1948 WITH SPOUSE BY SIDE. LEFT VIA POV TO HOME.
--- NOTE | 2017-03-02 13:30 | NUR ---
Post hospitalization follow up call made to patient. Patient reports he is tired however feels he is doing well after his chemotherapy. No questions concerning his medication or follow ups. [place] his hospitalization went well.
== END 2017-02-14 19:48 | disposition disaster alternative care site (69) | DRG 847 ==
LOC: GMSU 10:37
PROVIDERS: ADMIT Internal Medicine Hematology & Oncology
DX: Z51.11 Encounter for antineoplastic chemotherapy (principal); C83.30 Diffuse large B-cell lymphoma, unspecified site
CPT/HCPCS: J1100; J2469; J7030; J7040; J7050; J7512; J9000; J9070; J9181; J9310; J9370

== ENCOUNTER → 2017-03-05 | Outpatient (CLI) | payer OTHER ==
[~2017-03-05] MED LIST changes: +PRILOSEC20 MG PO; +SENOKOT8.6 MG PO; +XARELTO20 MG PO
== END ==
LOC: GKIC 11:21
DX: Z08 Encounter for follow-up examination after completed treatment for malignant neoplasm (principal)
CPT/HCPCS: A9552

== ENCOUNTER 2017-03-11 08:00 | Inpatient (IN) | payer OTHER ==
[~2017-03-11] VITALS: Ht 172.7 cm; Wt 74.8 kg
--- NOTE | ~2017-03-11 | DS ---
PATIENT'S NAME: STEVEN LANDRY [facility] AGE: 61 Y [address] ROOM: [address] [address] LOCATION: [facility] [place]MIT DATE: 03/11/2017 Discharge Summary DISCHARGE DATE: 03/15/2017 FAMILY PHYSICIAN: Maury Membreno MD ATTENDING PHYSICIAN: Cody Marie REASON FOR HOSPITALIZATION: To receive R-EPOCH chemotherapy. HOSPITAL COURSE: Steven is a 61-year-old male, who has a history of stage IV diffuse large B-cell lymphoma, and received his fourth cycle of R-EPOCH, which he was admitted for on 03/11/2017. The patient tolerated the chemotherapy well, and did not have any complaints. He states he had difficulty sleeping each night, but it was not a problem. He does admit that his neuropathy is slightly worse in his left fingertips, but not any worse than his right hand. He denies of any pain or motor involvement. He denies any problems with any nausea, vomiting, or diarrhea. He states his heartburn improved with Prilosec and Mylanta. Since this is his last cycle, he is planning on following up with his oncologist in [place] to discuss stem cell transplant, and is planning to have a cardiac stress test done around March 31. Otherwise, the patient's hospital stay was uneventful. DISCHARGE MEDICATIONS: 1. Acyclovir 400 mg. 2. Mylanta 30 mL. 3. Famotidine 10 mg. 4. Lidocaine/prilocaine cream. 5. Milk of magnesia 400 mg/5 mL. 6. Omeprazole 20 mg. 7. Ondansetron ODT 8 mg. 8. MiraLax 17 g. 9. Rivaroxaban 20 mg. 10. Senokot 8.6 mg. 11. Bactrim DS b.i.d. on Tuesdays and Fridays. CONDITION ON DISCHARGE: The patient is discharged in good condition and stable. DISCHARGE PLAN AND RECOMMENDATIONS: He is planning to receive his Neulasta subcutaneous injection tomorrow at [facility] on March 16. We will plan on following up with him in two weeks with a CBC and CMS. He will then proceed following up at [facility] for cardiac testing for his transplant. He was encouraged to call us with any concerns including fever greater than 100.5 degrees, chills, bleeding or large bruising, or dyspnea. PATIENT'S NAME: STEVEN LANDRY [facility] AGE: 61 Y [address] ROOM: [address] [address] LOCATION: [facility] [place] ADMIT DATE: 03/11/2017 Discharge Summary DISCHARGE DATE: 03/15/2017 FAMILY PHYSICIAN: Maury Membreno MD ATTENDING PHYSICIAN: Cody Marie JOE SWAN FOR CODY MARIE MD [facility] [place]/modl /[id number] d: 03/16/17 0547 t: 04/02/17 1636, DISCHARGE SUMMARY
== END 2017-03-15 18:30 | disposition disaster alternative care site (69) | DRG 847 ==
LOC: GMSU 08:00
PROVIDERS: ADMIT Internal Medicine Hematology & Oncology
DX: Z51.11 Encounter for antineoplastic chemotherapy (principal); C83.30 Diffuse large B-cell lymphoma, unspecified site; F41.9 Anxiety disorder, unspecified
CPT/HCPCS: J0171; J1100; J1200; J1642; J1720; J2469; J7030; J7040; J7050; J7512; J9000; J9070; J9181; J9310; J9370